=== PATIENT | female | born 1935 | race Two or more races ===

== ENCOUNTER 2021-08-13 07:44 | Emergency (ER) | payer OTHER ==
[~2021-08-13] VITALS: Ht 165.1 cm; Wt 72.6 kg
[2021-08-13 08:26] LABS: Basophils # (auto) 0 10 ^3/uL (0-0.2); Basophils % (auto) 0.8 % (0.0-2.0); Eosinophils # (auto) 0.7 10 ^3/uL (0-0.8); Eosinophils % (auto) 13.8 % (0.0-7.0); Hematocrit 32.7 % (36.0-46.0); Hemoglobin 10.4 g/dL (12.2-16.2); Lymphocytes # (auto) 2.1 10 ^3/uL (0.4-5.4); Lymphocytes % (auto) 40.9 % (10.0-50.0); Mean Corpuscular Hemoglobin 24.6 pg (28.0-32.0); Mean Corpuscular Hgb Conc. 31.9 g/dL (32.0-36.0); Mean Corpuscular Volume 77.2 fL (80.0-100.0); Monocytes # (auto) 0.5 10 ^3/uL (0-1.3); Monocytes % (auto) 9.3 % (0.0-12.0); Neutrophils # (auto) 1.8 10 ^3/uL (1.6-8.6); Neutrophils % (auto) 35.2 % (37.0-80.0); Nucleated Red Blood Cells % 0.1 %; Red Blood Cells 4.24 10^6/uL (4.0-5.20); Red Cell Distribution Width 19.4 % (11.8-14.3); White Blood Cell 5.1 10^3/uL (4.4-10.8)
[2021-08-13 08:36] LABS: Albumin 3.4 g/dL (3.4-5.0); Calcium 9.4 mg/dL (8.5-10.1); Potassium 4.2 mmol/L (3.5-5.1)
[2021-08-13 08:39] LABS: BUN/Creatinine Ratio 10.3; Bilirubin, Total 0.3 mg/dL (0.2-1.0); Total Protein 7.2 g/dL (6.4-8.2)
[2021-08-13] MEDS ORDERED: methylPREDNISolone SOD SUCC 125 MG/2 ML VL IV ONE (09:00)
[2021-08-13] MEDS ORDERED: ALBUTEROL SULF 2.5 MG/0.5ML(0.5%) NEB SOLN NEB ONE (09:00)
[2021-08-13] MEDS ORDERED: IPRATROPIUM BROM 0.5 MG/2.5ML INH SOL NEB ONE (09:00)
[2021-08-13] MEDS ORDERED: ENOXAPARIN SOD 80 MG/0.8ML SYRINGE SC ONE (10:30)
[2021-08-13 10:55] LABS: Urine Bacteria FEW /hpf (None Seen); Urine Blood Negative /uL (Negative); Urine Hyaline Cast FEW /lpf (0 - 2); Urine Specific Gravity 1.012 (1.001-1.035); Urine WBC <1 /hpf (0 - 5)
[2021-08-13] MEDS ORDERED: HYDROcodone-ACET 10/325MG TAB PO ONE (12:30)
[2021-08-13] MEDS ORDERED: FUROSEMIDE 20 MG/2 ML VIAL IV ONE (14:30)
[2021-08-13 18:14] VITALS: BP 161/89
== END 2021-08-13 18:58 | disposition short-term general hospital (02) ==
LOC: EDBD 07:44 → ER 07:44
DX: J45.901 Unspecified asthma with (acute) exacerbation (principal); J44.9 Chronic obstructive pulmonary disease, unspecified; I10 Essential (primary) hypertension; Z20.822 Contact with and (suspected) exposure to COVID-19
CPT/HCPCS: 36415; 71045; 80053; 81001; 83880; 84484; 85025; 87426; 93005; 94640; 96372; 96374; 96375; 99285; J1650; J1940; J2930; J7644

== ENCOUNTER 2021-09-15 17:41 | Inpatient (IN) | payer OTHER ==
[~2021-09-15] VITALS: Ht 165.1 cm; Wt 76.5 kg
[2021-09-15] MEDS ORDERED: IPRATROPIUM BROM 0.5 MG/2.5ML INH SOL HHN ONE (19:00)
[2021-09-15] MEDS ORDERED: ALBUTEROL SULF 2.5 MG/0.5ML(0.5%) NEB SOLN HHN ONE (19:00)
[2021-09-15] MEDS ORDERED: methylPREDNISolone SOD SUCC 125 MG/2 ML VL IV ONE (19:00)
[2021-09-15 20:40] LABS: Basophils # (auto) 0 10 ^3/uL (0-0.2); Basophils % (auto) 0.7 % (0.0-2.0); Eosinophils # (auto) 0.2 10 ^3/uL (0-0.8); Eosinophils % (auto) 3.3 % (0.0-7.0); Hematocrit 33.1 % (36.0-46.0); Hemoglobin 10.8 g/dL (12.2-16.2); Lymphocytes # (auto) 2.6 10 ^3/uL (0.4-5.4); Lymphocytes % (auto) 36.7 % (10.0-50.0); Mean Corpuscular Hemoglobin 25.2 pg (28.0-32.0); Mean Corpuscular Hgb Conc. 32.8 g/dL (32.0-36.0); Mean Corpuscular Volume 76.9 fL (80.0-100.0); Monocytes # (auto) 0.7 10 ^3/uL (0-1.3); Monocytes % (auto) 9.3 % (0.0-12.0); Neutrophils # (auto) 3.6 10 ^3/uL (1.6-8.6); Nucleated Red Blood Cells % 0.2 %; Red Blood Cells 4.31 10^6/uL (4.0-5.20); Red Cell Distribution Width 18.5 % (11.8-14.3); White Blood Cell 7.1 10^3/uL (4.4-10.8)
[2021-09-15 21:00] LABS: Albumin 3.3 g/dL (3.4-5.0); Calcium 8.7 mg/dL (8.5-10.1); Potassium 4.2 mmol/L (3.5-5.1)
[2021-09-15 21:19] LABS: Bilirubin, Total 0.3 mg/dL (0.2-1.0); Total Protein 7.1 g/dL (6.4-8.2)
[2021-09-15] MEDS ORDERED: ENOXAPARIN SOD 80 MG/0.8ML SYRINGE SC ONE (21:45)
[2021-09-15] MEDS ORDERED: ACETAMINOPHEN 325 MG TAB PO PRN (22:15)
[2021-09-15] MEDS ORDERED: NITROGLYCERIN 0.4 MG SL TAB SL PRN (22:15)
[2021-09-15] MEDS ORDERED: MORPHINE SULFATE INJECTION 2 MG/ML SYRG IV PRN (22:15)
[2021-09-15] MEDS ORDERED: ALBUTEROL SULF 2.5 MG/0.5ML(0.5%) NEB SOLN NEB PRN (22:15)
[2021-09-15] MEDS ORDERED: CARVEDILOL 3.125 MG TAB PO ONE (22:15)
[2021-09-15] MEDS ORDERED: ONDANSETRON HCL 4 MG/2 ML VIAL IV PRN (22:15)
[2021-09-15] MEDS ORDERED: FUROSEMIDE 40 MG/4 ML VIAL IV ONE (22:15)
[2021-09-15 23:15] LABS: INR 1.04 (0.9-1.15); Partial Thromboplastin Time 28.3 sec (23.6-33.0)
[2021-09-16] MEDS: HYDROcodone-ACET 5/325MG TAB PO PRN ×2 (02:09→18:18)
[2021-09-16 03:44] VITALS: BP 148/64
[2021-09-16] MEDS: FUROSEMIDE 20 MG/2 ML VIAL IV SCH ×2 (06:31→18:18)
[2021-09-16 07:56] LABS: Basophils # (auto) 0 10 ^3/uL (0-0.2); Eosinophils # (auto) 0 10 ^3/uL (0-0.8); Hemoglobin 11.5 g/dL (12.2-16.2); Lymphocytes # (auto) 0.6 10 ^3/uL (0.4-5.4); Monocytes # (auto) 0.1 10 ^3/uL (0-1.3)
[2021-09-16 07:59] LABS: Basophils % (auto) 0.4 % (0.0-2.0); Eosinophils % (auto) 0.1 % (0.0-7.0); Hematocrit 35.4 % (36.0-46.0); Lymphocytes % (auto) 10.6 % (10.0-50.0); Mean Corpuscular Hemoglobin 25.2 pg (28.0-32.0); Mean Corpuscular Hgb Conc. 32.5 g/dL (32.0-36.0); Mean Corpuscular Volume 77.6 fL (80.0-100.0); Monocytes % (auto) 0.9 % (0.0-12.0); Neutrophils # (auto) 5.3 10 ^3/uL (1.6-8.6); Red Blood Cells 4.56 10^6/uL (4.0-5.20); Red Cell Distribution Width 18.5 % (11.8-14.3)
[2021-09-16 08:04] LABS: Albumin 3.5 g/dL (3.4-5.0); Potassium 3.9 mmol/L (3.5-5.1)
[2021-09-16 08:09] LABS: BUN/Creatinine Ratio 16.2; Bilirubin, Total 0.4 mg/dL (0.2-1.0); Total Protein 7.3 g/dL (6.4-8.2)
[2021-09-16 09:00] VITALS: BP 146/77
[2021-09-16] MEDS: ASPirin 81 mg TAB PO SCH (09:44)
[2021-09-16] MEDS: CARVEDILOL 3.125 MG TAB PO SCH ×2 (09:45→21:43)
[2021-09-16] MEDS ORDERED: PANTOPRAZOLE 40 MG TAB PO SCH (10:00)
[2021-09-16 12:48] VITALS: BP 152/82
[2021-09-16] MEDS ORDERED: FURO1TAB33 PO (14:12)
[2021-09-16] MEDS ORDERED: PRE1T PO (14:12)
[2021-09-16] MEDS ORDERED: MIRT-66 OR (14:12)
[2021-09-16] MEDS ORDERED: GABA300C10 PO (14:12)
[2021-09-16] MEDS ORDERED: METO25TA5 PO (14:12)
[2021-09-16] MEDS ORDERED: ASPI-498 OR (14:12)
[2021-09-16] MEDS ORDERED: ISO60SRT PO (14:12)
[2021-09-16 17:22] VITALS: BP 143/78
[2021-09-16] MEDS ORDERED: TEMAZEPAM 15 MG CAP PO ONE (21:15)
[2021-09-16] MEDS: ATORVASTATIN 20 MG TAB PO SCH (21:44)
[2021-09-16] MEDS: MIRTAZAPINE 30 MG TAB PO SCH (21:44)
[2021-09-16 22:00] VITALS: BP 162/79
[2021-09-17 05:00] VITALS: BP 123/81
[2021-09-17] MEDS: FUROSEMIDE 20 MG/2 ML VIAL IV SCH ×2 (06:10→18:34)
[2021-09-17 09:00] VITALS: BP 157/94
[2021-09-17] MEDS: predniSONE 5 MG TAB PO SCH (09:44)
[2021-09-17] MEDS: ASPirin 81 mg TAB PO SCH (09:44)
[2021-09-17] MEDS: CARVEDILOL 3.125 MG TAB PO SCH ×2 (09:45→22:10)
[2021-09-17] MEDS: ENOXAPARIN SOD 30 MG/0.3 ML SYRINGE SC SCH (09:46)
[2021-09-17 11:53] LABS: Albumin 3.2 g/dL (3.4-5.0); Magnesium 2.3 mg/dL (1.6-2.6); Potassium 4.2 mmol/L (3.5-5.1)
[2021-09-17 11:57] LABS: BUN/Creatinine Ratio 20.1; Bilirubin, Total 0.3 mg/dL (0.2-1.0); Total Protein 7.3 g/dL (6.4-8.2)
[2021-09-17] MEDS ORDERED: ALBUTEROL SULF 2.5 MG/0.5ML(0.5%) NEB SOLN NEB PRN (12:15)
[2021-09-17] MEDS ORDERED: LORazepam 0.5 MG TAB PO PRN (12:15)
[2021-09-17] MEDS ORDERED: MORPHINE SULFATE INJECTION 2 MG/ML SYRG IV PRN (12:15)
[2021-09-17] MEDS ORDERED: IPRATROPIUM BROM 0.5 MG/2.5ML INH SOL NEB PRN (12:15)
[2021-09-17] MEDS ORDERED: ERGOCALCIFEROL 50,000 UNIT(1.25MG) CAP PO SCH (12:30)
[2021-09-17 13:00] VITALS: BP 111/79
[2021-09-17] MEDS: GABAPENTIN 300 MG CAP PO SCH ×2 (14:27→22:02)
[2021-09-17 16:19] VITALS: BP 142/97
[2021-09-17] MEDS: HYDROcodone-ACET 5/325MG TAB PO PRN (18:34)
[2021-09-17 22:00] VITALS: BP 143/99
[2021-09-17] MEDS: ATORVASTATIN 20 MG TAB PO SCH (22:02)
[2021-09-17] MEDS: MIRTAZAPINE 30 MG TAB PO SCH (22:02)
[2021-09-18] MEDS: FUROSEMIDE 20 MG/2 ML VIAL IV SCH (05:34)
[2021-09-18] MEDS: GABAPENTIN 300 MG CAP PO SCH ×2 (05:34→14:00)
[2021-09-18 06:00] VITALS: BP 143/99
[2021-09-18 09:00] VITALS: BP 144/75
[2021-09-18] MEDS: predniSONE 5 MG TAB PO SCH (09:33)
[2021-09-18] MEDS: ASPirin 81 mg TAB PO SCH (09:33)
[2021-09-18] MEDS: CARVEDILOL 3.125 MG TAB PO SCH (09:35)
[2021-09-18] MEDS: ENOXAPARIN SOD 30 MG/0.3 ML SYRINGE SC SCH (09:36)
[2021-09-18 13:00] VITALS: BP 127/68
[2021-09-18] MEDS ORDERED: ALBUAER3 IN (13:01)
[2021-09-18] MEDS ORDERED: CHOL500014 PO (13:01)
[2021-09-18 15:23] VITALS: BP 127/68
== END 2021-09-18 15:30 | disposition home health service (06) | DRG 280 ==
LOC: ER 17:41 → TELE 22:12 → TELE-WESTW 09-16 09:01
PROVIDERS: ADMIT Nurse Practitioner; ATTEND Internal Medicine
DX: I13.0 Hypertensive heart and chronic kidney disease with heart failure and stage 1 through stage 4 chronic kidney disease, or unspecified chronic kidney disease (principal); I50.33 Acute on chronic diastolic (congestive) heart failure; I21.A1 Myocardial infarction type 2; N17.9 Acute kidney failure, unspecified; J96.10 Chronic respiratory failure, unspecified whether with hypoxia or hypercapnia; N18.9 Chronic kidney disease, unspecified; Z20.822 Contact with and (suspected) exposure to COVID-19; E55.9 Vitamin D deficiency, unspecified; F41.9 Anxiety disorder, unspecified; G25.81 Restless legs syndrome; G62.9 Polyneuropathy, unspecified; I42.2 Other hypertrophic cardiomyopathy; D64.9 Anemia, unspecified; I42.1 Obstructive hypertrophic cardiomyopathy; J44.9 Chronic obstructive pulmonary disease, unspecified; M19.90 Unspecified osteoarthritis, unspecified site; Z83.3 Family history of diabetes mellitus; Z86.73 Personal history of transient ischemic attack (TIA), and cerebral infarction without residual deficits
CPT/HCPCS: 36415; 71046; 78582; 80053; 80061; 82306; 83735; 83880; 84443; 84484; 85025; 85379; 85610; 85730; 87426; 93005; 93306; 94640; 96372; 96374; 96375; G0378

== ENCOUNTER → 2022-04-04 | Emergency (ER) | payer OTHER ==
[~2022-04-04] VITALS: Ht 165.1 cm; Wt 72.6 kg
[~2022-04-04] MED LIST: ALBUAER3 IN; ASPI-498 OR; CHOL500014 PO; ENOXAPARIN SOD 80 MG/0.8ML SYRINGE SC ONE; FURO1TAB33 PO; FUROSEMIDE 20 MG/2 ML VIAL IV ONE; GABA300C10 PO; IOHEXOL 350 MG/ML 100ML IJ ONE; ISO60SRT PO; METO25TA5 PO; MIRT-66 OR; PRE1T PO; cefTRIAXone 1GM/50ML D5W 50 ML IV ONE; hydrALAZINE HCL 20 MG/ML VL IV ONE
[2022-04-04 05:58] LABS: Basophils # (auto) 0.1 10 ^3/uL (0-0.2); Eosinophils # (auto) 0.4 10 ^3/uL (0-0.8); Hemoglobin 9.8 g/dL (12.2-16.2); Nucleated Red Blood Cells % 0.1 %; White Blood Cell 5.3 10^3/uL (4.4-10.8)
[2022-04-04 06:00] LABS: Basophils % (auto) 2.5 % (0.0-2.0); Eosinophils % (auto) 7.2 % (0.0-7.0); Hematocrit 29.6 % (36.0-46.0); Lymphocytes # (auto) 1.4 10 ^3/uL (0.4-5.4); Lymphocytes % (auto) 26.5 % (10.0-50.0); Mean Corpuscular Hemoglobin 25.2 pg (28.0-32.0); Mean Corpuscular Hgb Conc. 33.1 g/dL (32.0-36.0); Monocytes # (auto) 0.7 10 ^3/uL (0-1.3); Monocytes % (auto) 13.2 % (0.0-12.0); Neutrophils # (auto) 2.7 10 ^3/uL (1.6-8.6); Neutrophils % (auto) 50.6 % (37.0-80.0); Red Cell Distribution Width 18.5 % (11.8-14.3)
[2022-04-04 06:12] LABS: Albumin 3.9 g/dL (3.4-5.0); Calcium 9.7 mg/dL (8.5-10.1)
[2022-04-04 06:19] LABS: BUN/Creatinine Ratio 12.9; Bilirubin, Total 0.6 mg/dL (0.2-1.0); Total Protein 7.2 g/dL (6.4-8.2)
[2022-04-04 06:52] LABS: Urine Bacteria NONE SEEN /hpf (None Seen); Urine Blood Negative /uL (Negative); Urine Specific Gravity 1.011 (1.001-1.035); Urine WBC 47 /hpf (0 - 5)
[2022-04-04] MEDS: HYDROcodone-ACET 5/325MG TAB PO ONE ×2 (16:57→17:02)
[2022-04-05 01:15] VITALS: BP 128/107
== END | disposition home or self-care (01) ==
LOC: EDUNIT# 03:38 → ER 03:39 → EDBD 03:39
DX: I13.0 Hypertensive heart and chronic kidney disease with heart failure and stage 1 through stage 4 chronic kidney disease, or unspecified chronic kidney disease (principal); I50.9 Heart failure, unspecified; N39.0 Urinary tract infection, site not specified; I21.4 Non-ST elevation (NSTEMI) myocardial infarction; R79.1 Abnormal coagulation profile; E11.22 Type 2 diabetes mellitus with diabetic chronic kidney disease; N18.9 Chronic kidney disease, unspecified; I25.2 Old myocardial infarction; J44.9 Chronic obstructive pulmonary disease, unspecified; Z20.822 Contact with and (suspected) exposure to COVID-19
CPT/HCPCS: 36415; 71275; 80053; 81001; 83880; 84484; 85025; 85379; 87426; 93005; 96365; 96372; 96375; 99291; J0360; J0696; J1650; J1940; Q9967